=== PATIENT | male | born 1950 | race Caucasian/White ===

== ENCOUNTER 2017-06-03 07:43 | Day surgery (SDC) | payer OTHER ==
[~2017-06-03] VITALS: Ht 182.9 cm; Wt 183.0 kg
[2017-06-03] MEDS ORDERED: PROPOFOL 200 MG/20 ML AMP OTHER ONE (07:44)
[2017-06-03] MEDS ORDERED: POVIDONE IODINE 5% (ANTISEPSIS KIT) 4 APPLICATIONS EACH NARE PRN (08:30)
[2017-06-03] MEDS ORDERED: LACTATED RINGER'S 1000 ML IV PRN (08:30)
[2017-06-03] MEDS ORDERED: METOPROLOL TARTRATE 25 MG TAB PO PRN (08:30)
[2017-06-03] MEDS ORDERED: SODIUM CHLORID 0.9% 500 ML IV PRN (08:30)
[2017-06-03] MEDS ORDERED: CHLORHEXIDINE GLUCONATE 2 % 1 PACK (2 CLOTHS) TOPICAL PRN (08:30)
[2017-06-03 08:33] VITALS: BP 138/80; PULSE 69; RESP 18; TEMP 98.2; O2SAT 95
[2017-06-03 08:38] LABS: AUTOMATED NEUTROPHIL # 5.1 TH/MM3 (1.8-7.7); BASOPHIL # 0.1 TH/MM3 (0-0.2); BASOPHIL % 0.8 % (0.0-2.0); EOSINOPHIL # 0.5 TH/MM3 (0-0.4); EOSINOPHIL % 5.7 % (0.0-4.0); HEMATOCRIT 39.9 % (39.0-51.0); HEMO FLAGS DIFF FINAL; LYMPH % 29.8 % (9.0-44.0); LYMPHOCYTE # 2.7 TH/MM3 (1.0-4.8); MEAN CELL VOLUME 87.2 FL (80.0-100.0); MEAN CORPUSCULAR HGB CONC 33.2 % (32.0-36.0); MONO % 6.8 % (0.0-8.0); NEUT % 56.9 % (16.0-70.0); PLATELET COUNT 247 TH/MM3 (150-450); RED BLOOD COUNT 4.58 MIL/MM3 (4.50-5.90); RED CELL DISTRIBUTION WIDTH 14.4 % (11.6-17.2)
[2017-06-03] MEDS ORDERED: HYDR-3366 PO (08:45)
[2017-06-03] MEDS ORDERED: OMEP20TA93 PO (08:45)
[2017-06-03] MEDS ORDERED: LEVO150T7 PO (08:45)
[2017-06-03] MEDS ORDERED: METO100T PO (08:45)
[2017-06-03] MEDS ORDERED: ATOR80TA45 PO (08:45)
[2017-06-03] MEDS ORDERED: METF1000 PO (08:45)
[2017-06-03] MEDS ORDERED: AMLO10TA2 PO (08:45)
[2017-06-03] MEDS ORDERED: GARL3CAP PO (08:45)
[2017-06-03] MEDS ORDERED: TIZA4CAP3 PO (08:45)
[2017-06-03] MEDS ORDERED: ALPR0.5T3 PO (08:45)
[2017-06-03] MEDS ORDERED: FENO160T PO (08:45)
[2017-06-03] MEDS ORDERED: VIAG100T PO (08:45)
[2017-06-03] MEDS ORDERED: LOSA100T PO (08:45)
[2017-06-03] MEDS ORDERED: GLUC500T4 PO (08:45)
[2017-06-03] MEDS ORDERED: NOVO7030P2 SQ (08:45)
[2017-06-03] MEDS ORDERED: ECASA81 PO (08:45)
[2017-06-03] MEDS ORDERED: MULTTAB67 PO (08:45)
[2017-06-03] MEDS ORDERED: DULO1CAP2 PO (08:45)
[2017-06-03 08:49] LABS: APTT (PATIENT) 26.4 SEC (24.3-30.1); PROTHROMBIN TIME - PATIENT 10.6 SEC (9.8-11.6)
[2017-06-03 08:57] LABS: BICARBONATE 27.8 MEQ/L (21.0-32.0); POTASSIUM 4.2 MEQ/L (3.5-5.1)
[2017-06-03] MEDS ORDERED: LIDOCAINE HCL 2% 50 ML VIAL ONE (10:36)
[2017-06-03] MEDS ORDERED: VANCOMYCIN 500 MG VIAL ONE (10:37)
[2017-06-03] MEDS ORDERED: VANCOMYCIN HCL 1000 MG VIAL ONE (10:37)
[2017-06-03] MEDS ORDERED: ceFAZolin INJ 1,000 MG VIAL ONE (10:37)
--- NOTE | 2017-06-03 11:58 | PD.CARD ---
PPM GENERATOR REPLACEMENT PROCEDURE DATE: Jun 03, 2017 PPM GENERATOR REPLACEMENT PROC PROCEDURE PERFORMED Permanent pacemaker removal, permanent pacemaker replacement, pocket revision. Mr. Nguyen is a 67 -year-old male with history of symptomatic bradycardia, previous pacemaker, device end of life, admits for pacer generator replacement. The risks, the nature and the benefit of the procedure were clearly stated to him. The risks include pneumothorax, cardiac perforation, stroke and even . The patient understood and agreed to proceed. PROCEDURE After written informed consent was obtained, the patient was brought to the EP lab where was prepped and draped in the sterile fashion. Conscious sedation was initiated using intravenous Versed and introducer intravenous fentanyl. Once sedation was verified, the left infraclavicular area over the generator was anesthetized with 2% Xylocaine. Using a #11 scalpel, a 3 centimeter incision was made over the existing generator. Dissection was then taken down to deep fascial layer using Bovie cautery and blunt dissection. Once exposed, the generator was removed from the pocket. The pocket was expanded. Scar tissue was removed around the leads. Then, the leads were disconnected and tested. At that point, the pocket was copiously irrigated using antibiotic solution. The leads were connected to the new generator and placed into the pocket. The pacemaker was interrogated. He was A-sensing, V-pacing. I did proceed with wound closure. The deep fascial layer was approximated with 2-0 Vicryl suture in a continuous fashion. The subcutaneous layer was approximated with 2-0 Vicryl suture in a continuous fashion. Dermabond adhesive was applied to the wound followed by a sterile pressure dressing. There was no complication. The patient tolerated procedure. Blood loss minimal. EXPLANTED HARDWARE The explanted permanent pacemaker is a Medtronic. Model # ADDR01 serial number [id number]. For information about the existing leads, please refer to previous dictation. IMPLANTED HARDWARE The implanted permanent pacemaker is a Medtronic model number A2DR01, serial number [id number]. THRESHOLDS The right atrial pacing threshold in bipolar mode was 0.75 volt at 0.5 milliseconds. Lead impedance 380 ohms and P wave at 2.4 millivolts. The right ventricular pacing threshold in bipolar mode was 2.25 volts at 0.5 milliseconds. Lead impedance 1140 ohms. SETTINGS The device is set in a DDD60. Upper limit 130 beats per minute. Hysteresis and mode switch are on. CONCLUSIONS Successful permanent pacemaker removal, permanent pacemaker implantation, pocket revision. COMMENT AND RECOMMENDATIONS The patient will be transferred to the telemetry unit. He will be observed. The patient will be discharged home later on today. Cinthya Clarke MD Jun 03, 2017 11:58
[2017-06-03] MEDS ORDERED: ACETAMINOPHEN/CODEINE 300 MG/30 MG TAB PO PRN ×2 (12:00)
[2017-06-03] MEDS ORDERED: ONDANSETRON HCL 4 MG/2 ML VIAL IV PUSH PRN (12:00)
[2017-06-03] MEDS ORDERED: SODIUM CHLORIDE 0.9% FLUSH 10 ML FLUSH IV FLUSH PRN (12:00)
--- NOTE | 2017-06-03 12:12 | CATHPROC ---
Ayi Laile HIS Report Study Information Study Number Admission Scheduled Start Study Start [id number] Jun 03 2017 7:43AM 06/03/2017 Jun 03 2017 10:23AM [place] [facility] Cardiac Pacer/ICD Admit Source Facility Department Other [facility] - [facility] Physician and Clinical Staff Initial Cinthya Zayas Cover Stitch Machine Operator Deo, Analy,SPEED WINDER TECH2 Other Anesthesia, SEISMIC INTERPRETER Recorder Valorie Rodarte,RN Recorder Clemencia Temple,RN Recorder Bridgette Haines,BSRN Scrub Tea Ferreira RCIS Equipment Time Special Services Coordinator Description Size Mfg Part Number Used/Scraped DERMABOND, ADHESIVE SKIN [id number] 11:24 CORDIS/PACER * Used GLUE MINI *[id number] 11:24 MEDLINE INDUST[employer]ES SUTURE, STRIP PLUS 1/2" * Used *[id number] 11:24 MEDLINE PACER BLANKENSHIP, LIMB * 2530 *[id number] Used [id number] 11:24 MEDLINE PACER PACK, PACER CUSTOM * Used *[id number] 11:23 Needle Sponge Count 1 1 Used 11:23 Needle Sponge Count 1 111 Used 11:23 Needle Sponge Count 20 200 Used SUTURE, 2-0 VICRYL [CT1] ([id number]) [id number] 11:24 [facility] BLANKET,WARM AIR CCL * Used *[id number] [facility] PAD, ELECTROSURGICAL 11:24 * [id number] *[id number] Used SURGICAL GROUNDING ORANGE PACEMAKER, MARQUITA ARCE MRI 11:44 VITATRON MEDTRONIC OEA-DDDR A2DR01 Used SURESCAN 11:24 VITATRON MEDTRONIC PLASMABLADE, PEAD 3.0S * [id number] Used Equipment Model, Serial, Lot Number and Expiration Data Description Model Number Serial Number Lot Number Expiration Date PACEMAKER, MARQUITA ARCE MRI A2DR01 [id number] 10-26-2018 SURESCAN History: Risk Factors Hypertension Previous PR Yes Yes Chronic Lung Diabetes Diabetes Therapy Disease Labs Hgb (g/dl) Hct (%) RBC (MIL/MM3) WBC (l/cumm) Platelets (thousands) 11.60-17.00 35.00-51.00 4.00-5.90 4.00-11.00 150.00-450.00 13.0 39 4.5 9 247 Glucose (mg/dl) BUN (mg/dl) Creatinine (mg/dl) BUN:Creatinine (1:x) 74.00-106.00 7.00-18.00 0.50-1.30 10.00-20.00 140 17 1.1 15.5 Na (meq/l) K (meq/l) Cl (meq/l) CO2 (mmol/L) Ca (mg/dl) 136.00-145.00 3.50-5.10 98.00-107.00 21.00-32.00 8.50-10.10 139 4.2 104 27.8 8.9 PT (sec) PTT (sec) INR (PTT:PT) 9.80-11.60 24.30-30.10 0.90-1.10 10.6 26.4 1 Medication Medication Total Dose (Bolus/Oral) Medication Total Dosage/Unit 2% XYLOCAINE 50 mL Medications (Bolus/Oral) Medication Time Given Dosage/Unit Administered By Reason 06/03/2017 11:36:00 2% XYLOCAINE 50 mL Cinthya Clarke AM 50 mL 2% XYLOCAINE given in lab by Cinthya Clarke via Subcutaneous. Ordered by Cinthya Clarke. left upp er chest Medication (Drip) Medication Time Given Dosage/Unit Concentration/Unit Diluent (ml) Solution 06/03/2017 10:48:53 ANCEF 2 g AM 2 g ANCEF given in lab by Anesthesia, SEISMIC INTERPRETER via Peripheral IV. Ordered by Cinthya Clarke. Reason: As pe r physicians verbal order. 06/03/2017 10:48:41 VANCOMYCIN DRIP 1 g AM 1 g VANCOMYCIN DRIP given in lab by Anesthesia, SEISMIC INTERPRETER via Peripheral IV. Ordered by Cinthya Clarke. Angelia son: As per physicians verbal order. Initial Case Assessment Cardiovascular HR Rhythm NIBP Chest Pain 62 sr w/demand pacing 154/92 0 Edema Present Skin color Skin None Normal Warm Dry Neurological State Oriented to time-place- Alert Moves all extremities person Respiration - General Respiration Rate SpO2 (%) O2 (lpm) Short Of Breath (B/min) 16 96 4 Yes Final Case Assessment Cardiovascular HR NIBP Chest Pain 60 113/56 0 Edema Present Skin color Skin None Normal Warm Dry Neurological State Comment: intubated and sedated. Respiration - General SpO2 (%) 96 Chronological Log Time Study Chronological Log 10:20:05 Patient arrived via Bed. 10:20:06 Patient Name, D.O.B, / Armband Verified By R.N. 10:26:19 Consent signed by the physician and the patient and verified by the [facility] staff. 10:26:21 Pre-op and post- op instructions given; patient acknowledges understanding of instructions. 10:26:25 Verbal Stimulation=2 Physical Stimulation=2 Airway=2 Respiration=2 TOTAL=8. (0=absent, 1=li mited, 2=present) 10:26:28 Patient has been NPO for More than 6Hrs. 10:26:34 Skin Breakdown- none 10:26:35 Patient refused warmer or heated blankets. 10:26:36 Disposable Defibrillator Pads Placed On Patient. 10:26:37 [place] Prominences Protected 10:26:43 A # 20 IV was noted in the Hand (right). Grade = 0. 09.% nacl IV at kvo. 10:26:45 A # 20 IV was noted in the Antecubital (left). Grade = 0. 0.9% nacl IV at kvo. 10:26:48 2% CHLORHEXIDINE GLUCONATE WASH AND NASAL SWIPE DONE PRIOR TO PROCEDURE. 10:26:50 History and physical on the chart. 10:27:23 Anesthesia at bedside. Assumes care of patient. 1 g VANCOMYCIN DRIP given in lab by Anesthesia, SEISMIC INTERPRETER via Peripheral IV. Ordered by Jose Clarke Reason: As per 10:48:41 physicians verbal order. 2 g ANCEF given in lab by Anesthesia, SEISMIC INTERPRETER via Peripheral IV. Ordered by Hanscy. Vince Reason: As per physicians 10:48:53 verbal order. Assessment: Initial Case, HR=62 BPM, Rhythm=sr w/demand pacing, HUMP=548/92 mmhg, Chest Pain=0, Edema=None, Color=Normal, Skin = Warm, Dry 11:01:52 Neurological: State=Alert, Ox3, LEES Respiration: Resp=16 B/min, SpO2=96 %, O2=4 lpm, Short of Breath 11:03:39 Bovie ground pad applied to: right thigh. 11:03:41 Table restraints applied according to hospital policy 11:04:58 Left Upper Chest Prepped Times Two. 11:14:13 Reference ECG taken 11:20:50 Pt intubated by anesthesia for procedure. PACU notified. First Sponge And Instrument Count Done by Tea Ferreira RCIS. 11:22:20 Hypo's: 1, Sponges: 20 Sutures: 2, Blades: 1, Instruments: 26, Syveck Patches: 0 plasma blade verified with TF. 11:32:55 Immediate Presedation assesment performed by physician. Time Out. Correct patient, procedure, procedure equipment, site and side verified with physicia n present. Time 11:34:00 concurred by MD, individual staff and SEISMIC INTERPRETER. 11:34:00 Case Start Time Out #2 - Consents verified, patient in correct position, all results are labled and displa yed, safety precautions 11:34:59 taken, antibiotics administered. Time out concurred by MD, individual staff and SEISMIC INTERPRETER in procedu re 11:36:00 50 mL 2% XYLOCAINE given in lab by Cinthya Clarke via Subcutaneous. Ordered by Cinthya Clarke . left upper chest 11:37:38 Surgical Incision Made. 11:38:47 Opening pocket. 11:40:05 A device was explanted. 11:41:20 Pocket flushed with antibiotic solution 11:43:06 A PACEMAKER, MARQUITA ROD OEA-DDDR was connected and placed in the pocket. Second Sponge And Instrument Count Done by Tea Ferreira RCIS. 11:45:32 Hypo's: 1, Sponges: 20 Sutures: 2, Blades: 1, Instruments: 26, Syveck Patches: 0 plasma blade verified with TF. 11:45:49 The pocket was closed. 11:47:58 Implant Procedure was performed. 11:48:11 A PPM Implant . (Dual) Generator change 11:48:33 Bedside Report will be given. Assessment: Final Case, HR=60 BPM, VQZL=731/56 mmhg, Chest Pain=0, Edema=None, Color=Normal, Sk in = Warm, Dry 11:49:23 Neurological: Comment=intubated and sedated. Respiration: SpO2=96 % 11:50:42 Sterile dressing applied to left uppper chest site. 11:50:56 No case complications noted. 11:51:01 Cine recording checked. 11:51:48 PACU called. Spoke to Talia. 11:51:55 Implantable Device card placed in patient's chart. 11:52:02 Defibrillator and ground pads removed. Skin intact. Final Sponge And Instrument Count Done by Tea Ferreira RCIS. 11:52:27 Hypo's: 1, Sponges: 20 Sutures: 2, Blades: 1, Instruments: 26, Syveck Patches: 0 plasma blade verified with TF. 11:56:00 Case End 12:11:56 [facility] with SEISMIC INTERPRETER. End Study - Contrast Media Used In Study Contrast Total Opened (mL) Total Used (mL) Total Wasted (mL) Unspecified 0 0 0 End Study - Maximum Contrast Load Max Contrast Load (mL) 831.8 End Study - Radiation Exposure Fluoro Time (minutes) 0.1 End Study - Patient Disposition Complications Transferred To Interventional Outcome No Telemetry Bed successful
[2017-06-03 12:20] VITALS: O2SAT 95
[2017-06-03] MEDS ORDERED: DO NOT ADM ANY ANTICOAGULANT DRUGS PRN (13:15)
[2017-06-03 14:10] VITALS: BP 142/70; PULSE 60; RESP 18; TEMP 97.8; O2SAT 96
[2017-06-03] MEDS ORDERED: CEPH-460 PO (15:38)
[2017-06-03] MEDS ORDERED: ceFAZolin 2 GM PREMIX 50 ML IV SCH (18:00)
[2017-06-03] MEDS ORDERED: SODIUM CHLORIDE 0.9% FLUSH 10 ML FLUSH IV FLUSH SCH (21:00)
--- NOTE | 2017-06-04 18:07 | EKG ---
Date Performed: 06/03/2017 Time Performed: 08:45:24 PTAGE: 67 years EKG: Sinus rhythm with ventricular demand pacing Abnormal ECG NO PREVIOUS TRACING DOCTOR: Marques Gay Interpretating Date/Time 06/04/2017 18:06:18
== END 2017-06-03 16:45 | disposition home or self-care (01) ==
LOC: HCAT 07:43 → HDIC 07:43 → HCAT 16:45
PROVIDERS: ATTEND Internal Medicine Interventional Cardiology
DX: Z45.010 Encounter for checking and testing of cardiac pacemaker pulse generator [battery] (principal); R00.1 Bradycardia, unspecified; R06.09 Other forms of dyspnea; E78.5 Hyperlipidemia, unspecified; I11.9 Hypertensive heart disease without heart failure; I65.21 Occlusion and stenosis of right carotid artery; J44.9 Chronic obstructive pulmonary disease, unspecified; E11.9 Type 2 diabetes mellitus without complications; E66.01 Morbid (severe) obesity due to excess calories; Z68.43 Body mass index [BMI] 50.0-59.9, adult; Z79.84 Long term (current) use of oral hypoglycemic drugs; Z79.82 Long term (current) use of aspirin
CPT/HCPCS: 00400; 33228; 80048; 82948; 85025; 85610; 85730; 86850; 86900; 86901; 93005; C1785; J0690; J3370